=== PATIENT | male | born 1955 | race Caucasian/White ===

== ENCOUNTER → 2018-11-26 08:42 | Outpatient (CLI) | payer OTHER, SELFPAY ==
[2018-11-26 10:49] LABS: Alanine Aminotransferase 60 IU/L (21-72); Albumin 4.4 g/dL (3.5-5.0); Albumin Globulin Ratio 1.7 (1.0-2.8); Alkaline Phosphatase 65 U/L (38-126); Aspartate Aminotransferase 32 IU/L (17-59); Bilirubin Total 0.8 mg/dL (0.2-1.3); Blood Urea Nitrogen 18 mg/dL (9-20); Calcium 9.5 mg/dL (8.4-10.2); Carbon Dioxide 28 mmol/L (22-32); Chloride 102 mmol/L (98-107); Cholesterol 188 mg/dL (140-199); Estimated Glomerular Filt Rate > 60.0 mL/min (>60); Globulin 2.6 g/dL (1.7-4.1); Glucose 84 mg/dL (80-110); HDL Cholesterol 55 mg/dL (40-60); HEMOLYSIS < 15 (0-50); LDL Cholesterol Calculated 119 mg/dL (<100); Potassium 4.4 mmol/L (3.4-5.1); Sodium 139 mmol/L (137-145); Triglycerides 69 mg/dL (35-150)
== END ==
PROVIDERS: Visit Provider Family Medicine
DX: E78.00 Pure hypercholesterolemia, unspecified (principal)
CPT/HCPCS: 36415; 80053; 80061

== ENCOUNTER 2019-06-08 10:26 | Day surgery (SDC) | payer MEDICARE, SELFPAY ==
[2019-06-08] VITALS (7 sets, daily range): BP systolic 123–185; BP diastolic 74–92; PULSE 64–79; RESP 8–17; TEMP 36.4–36.9; O2SAT 92–98; BMI 31.6
[2019-06-08] MEDS: SODIUM CHLORIDE 0.9% 1,000 ML 200 ML IV (10:44)
--- NOTE | 2019-06-08 11:03 | PM.HP.1 ---
History of Present Illness History of Present Illness Date Patient Seen: 06/08/19 Time Patient Seen: 11:03 Chief complaint: [id number] Narrative: History of colon polyps Patient History Medical History (Updated 06/08/19 @ 10:54 by Ida Wilson RN) GERD (gastroesophageal reflux disease) (Acute) Hypertension (Acute) Family & Social History Social History: household members spouse Meds Home Medications and Allergies Home Medications Medication Instructions Recorded Confirmed Type atorvastatin 20 mg PO BEDTIME 06/08/19 06/08/19 History omeprazole 20 mg PO BID 06/08/19 06/08/19 History Exam Vital Signs (past 8 hours): - 06/08/19 10:55 Temperature 97.8 F Pulse Rate 73 Respiratory Rate 16 Blood Pressure 185/92 H Pulse Oximetry 98 Oxygen Delivery Method Room Air Narrative Exam Narrative: Oropharynx free of lesions Chest clear to auscultation percussion Cardiac exam reveals no S3 or murmur Assessment & Plan Assessment & Plan narrative: History of colon polyps. Need for follow-up colonoscopy. Risks, benefits, alternatives have been explained.
--- NOTE | 2019-06-08 11:04 | PM.OP.ENDO ---
Operative Date/Time/Diagnoses Date of procedure: 06/08/19 Time of procedure: 11:04 Pre-op diagnosis: See indication and findings Procedure & Clinicians Study performed: Colonoscopy Indications: History of colon polyps Surgeon: Lynsey Pitt Procedure Notes Procedure in detail: After informed consent was obtained the patient was placed in left lateral decubitus position. The video colonoscope was introduced the rectum slowly advanced to cecum. On slow withdrawal mucosa was carefully examined. The scope was removed. The patient tolerated procedure well. Preparation was good. Blood loss none Complications none Sedation Total sedation time 20 minutes Fentanyl 150 micro g Versed 8 mg IV titration Findings 1. Moderate sigmoid diverticulosis 2. Otherwise negative colonoscopy to cecum Patient will need follow-up colonoscopy in 5 years.
[2019-06-08] MEDS: MIDAZOLAM 5 MG/5 ML VIAL IV (11:31)
[2019-06-08] MEDS: fentaNYL 250 MCG/5 ML INJ IV (11:32)
== END 2019-06-08 12:12 | disposition home or self-care (01) ==
PROVIDERS: Family Provider Family Medicine; PCP Family Medicine; Visit Provider Internal Medicine Gastroenterology
PROC: 0DJD8ZZ Inspection of Lower Intestinal Tract, Via Natural or Artificial Opening Endoscopic (ICD-10-PCS; CPT 45378; principal; 2019-06-08 11:30)
DX: Z12.11 Encounter for screening for malignant neoplasm of colon (principal); Z86.010 Personal history of colon polyps; K57.30 Diverticulosis of large intestine without perforation or abscess without bleeding
CPT/HCPCS: G0105; J2250; J3010

== ENCOUNTER → 2020-01-03 08:39 | Outpatient (CLI) | payer MEDICARE, SELFPAY ==
[2020-01-03 09:47] LABS: Hemoglobin A1C% w Est Avg Glu 5.6 % (4.0-6.0)
[2020-01-03 09:49] LABS: Alanine Aminotransferase 50 IU/L (<50); Albumin 4.6 g/dL (3.5-5.0); Albumin Globulin Ratio 1.8 (1.0-2.8); Alkaline Phosphatase 67 U/L (38-126); Aspartate Aminotransferase 34 IU/L (17-59); BUN Creatinine Ratio 19.2 (6-22); Bilirubin Total 0.8 mg/dL (0.2-1.3); Blood Urea Nitrogen 19 mg/dL (9-20); Calcium 9.5 mg/dL (8.4-10.2); Carbon Dioxide 31 mmol/L (22-32); Chloride 104 mmol/L (98-107); Cholesterol 172 mg/dL (140-199); Estimated Glomerular Filt Rate > 60.0 mL/min (>60); Globulin 2.5 g/dL (1.7-4.1); Glucose 104 mg/dL (80-110); HDL Cholesterol 59 mg/dL (40-60); HEMOLYSIS < 15 (0-50); LDL Cholesterol Calculated 102 mg/dL (<100); Potassium 4.3 mmol/L (3.4-5.1); Sodium 140 mmol/L (137-145); Total Protein 7.1 g/dL (6.3-8.2); Triglycerides 56 mg/dL (35-150); VLDL Cholesterol Calculated 11 mg/dL (2-30)
== END ==
PROVIDERS: Family Provider Family Medicine; PCP Family Medicine; Referring Provider Family Medicine; Visit Provider Family Medicine
DX: I10 Essential (primary) hypertension (principal); E78.00 Pure hypercholesterolemia, unspecified
CPT/HCPCS: 36415; 80053; 80061; 83036

== ENCOUNTER → 2020-07-18 14:43 | Outpatient (CLI) | payer MEDICARE, SELFPAY ==
[2020-07-18] MEDS: COVID-19 VACC #1, MRNA(MOD) 100 MCG/0.5 ML VIAL IM (14:49)
== END ==
PROVIDERS: Family Provider Family Medicine; PCP Family Medicine; Visit Provider Internal Medicine
DX: Z23 Encounter for immunization (principal)
CPT/HCPCS: 0011A; 91301

== ENCOUNTER → 2020-08-15 14:25 | Outpatient (CLI) | payer MEDICARE, SELFPAY ==
[2020-08-15] MEDS: COVID-19 VACC #2, MRNA(MOD) 100 MCG/0.5 ML VIAL IM (14:32)
== END ==
PROVIDERS: Family Provider Family Medicine; PCP Family Medicine; Visit Provider Internal Medicine
DX: Z23 Encounter for immunization (principal)
CPT/HCPCS: 0012A; 91301

== ENCOUNTER → 2020-10-29 14:26 | Outpatient (CLI) | payer MEDICARE, SELFPAY ==
[2020-10-29 16:58] LABS: COVID19 -Nasal RAPID Negative (Negative)
== END ==
PROVIDERS: Family Provider Family Medicine; PCP Family Medicine; Visit Provider Student in an Organized Health Care Education/Training Program
DX: Z20.822 Contact with and (suspected) exposure to COVID-19 (principal)
CPT/HCPCS: 87635; C9803

== ENCOUNTER 2020-10-31 10:24 | Day surgery (SDC) | payer MEDICARE, SELFPAY ==
[2020-10-31] VITALS (9 sets, daily range): BP systolic 129–166; BP diastolic 76–82; PULSE 61–91; RESP 12–18; TEMP 36.2–36.9; O2SAT 94–100; BMI 31.6
--- NOTE | 2020-10-31 | PATH_ITS ---
[facility] Accession Number: [id number] . 01 Material submitted: . PART A: gastrointestinal site - GASTRIC BODY POLYP PART B: esophagus - WOODSON'S BIOPSY . 02 Diagnosis: A. Stomach, Body Polyp, Biopsy: Fundic gland polyps. No evidence of Helicobacter on H/E stain. Negative for intestinal metaplasia. Negative for dysplasia and malignancy. . B. Esophagus, Biopsy: Squamocolumnar junctional mucosa with no diagnostic abnormality. Negative for intestinal metaplasia by alcian blue stain. Negative for dysplasia and malignancy. [facility] 11/06/2020 1638 Local . 02 Electronically signed: . Yudelka Echeverria MD, Pathologist NPI- [id number] . 01 Gross description: . Part A: GASTRIC BODY POLYP: Received in formalin are 3 fragment(s) of ramírez, soft tissue measuring 0.5 x 0.4 x 0.4 cm to 1.2 x 1.0 x 0.9 cm which is serially sectioned and submitted entirely in 2 cassette(s) Part B: WOODSON'S BIOPSY: Received in formalin are 3 fragment(s) of ramírez, soft tissue measuring 0.1 x 0.1 x 0.1 cm to 0.2 x 0.2 x 0.1 cm submitted entirely in 1 cassette(s) /[facility] 11/01/2020 2015 Local . 02 Microscopic: . B. An alcian blue stain was performed to evaluate for intestinal metaplasia and is negative. The control stain showed appropriate reactivity. . * This test was developed and its performance characteristics determined by [employer]. It has not been cleared or approved by the U.S. Food and Drug Administration. The FDA has determined that such clearance or approval is not necessary. This test is used for clinical purposes. It should not be regarded as investigational or for research. . 02 Pathologist provided ICD-10: K21.9 . 02 CPT . 068684, 685707, 376099 Performed at: [facility] [address] [id number] MD Abdullahi Gavin MD Phone: [phone] Performed at: [id number] [place], [place] [id number] MD Yudelka Echeverria MD Phone: [phone]
--- NOTE | 2020-10-31 08:00 | P.HP_ITS ---
History of Present Illness History of Present Illness Date Patient Seen: 10/31/20 Chief complaint: SDC Narrative: 65-year-old male with a history of GERD here for further evaluation and screening for Quinteros's esophagus Patient History Medical History (Updated 06/08/19 @ 10:54 by Ida Wilson RN) GERD (gastroesophageal reflux disease) Hypertension Family & Social History Social History: household members spouse Meds Home Medications and Allergies Home Medications Medication Instructions Recorded Confirmed Type atorvastatin 20 mg PO BEDTIME 06/08/19 10/31/20 History omeprazole 20 mg PO BID 06/08/19 10/31/20 History Allergies Allergy/AdvReac Type Severity Reaction Status Date / Time No Known Drug Allergies Allergy Verified 10/31/20 10:39 Exam Narrative Exam Narrative: General: Patient is obese, not in apparent distress Cardiovascular: Regular rate and rhythm, no murmurs, rubs, or gallops; no evidence of edema; no palpable abdominal aortic aneurysm Gastrointestinal: Normoactive bowel sounds, soft, nontender, nondistended, no rebound tenderness, no hepatosplenomegaly, no evidence of hernia Assessment & Plan Assessment & Plan narrative: 65-year-old male with a history of GERD here for further evaluation by means of endoscopy for Quinteros's esophagus screening Regarding the procedure(s), the risks and potential complications, benefits, and alternatives (including not doing the procedure) were discussed with the patient. The risks include but are not limited to bleeding, splenic injury, in fection, perforation which may require surgical intervention, missed lesions, and adverse reactions to sedative medicines. After a question and answer period, the patient agreed to proceed with the procedure(s) and gives informed consent.
[2020-10-31] MEDS: SODIUM CHLORIDE 0.9% 1,000 ML 70 ML IV (10:48)
--- NOTE | 2020-10-31 11:01 | PM.OP.ENDO ---
Operative Date/Time/Diagnoses Date of procedure: 10/31/20 Procedure Notes Procedure in detail: Surgeon: Jasen Benítez MD Procedure: Esophagogastroduodenoscopy with biopsies; primary EGD (done without office consultation) Preoperative diagnosis: Quinteros's esophagus surveillance, GERD Postoperative diagnosis: Short-segment Quinteros's esophagus status post biopsy; gastric polyp status post snare polypectomy; small hiatal hernia; mild distal esophageal stricture Medications: 2cc Viscous lidocaine 4%, Conscious sedation using 7 mg IV of Midazolam and 100 mcg IV of Fentanyl Preanesthesia Assessment An H and P was performed/updated and the Px?s ASA class is 2. The procedure was discussed in detail with the patient. The potential risks and complications including infection, bleeding, missed lesions, perforation, need for surgery in case of perforation, prolonged hospital stay, and were explained. A brief question and answer period was allotted and once all questions were answered, informed consent was obtained. The patient was brought back to the procedure room and placed on standard monitoring. The patient?s vital signs were monitored continuously throughout the entire procedure. Prior to starting, a timeout was performed to confirm the patient?s identity, allergies, medications, and procedure. Procedure in detail The patient was placed in left lateral decubitus position and a bite block was inserted. The tip of the upper endoscope was placed into the mouth and advanced without difficulty under direct visualization into the esophagus. Esophagus: At 38 cm from the incisors there was evidence of a mild stenosis possibly from reflux esophagitis. This area was passed without difficulty. Given the patient's absence of dysphagia symptoms no dilation was performed; There was evidence of prior Quinteros's esophagus C1 M1, biopsies taken to rule out dysplasia with minimal bleeding Stomach: There were multiple sessile and pedunculated polyps in the stomach. A few of the pedunculated polyps appeared very erythematous and so the decision was made to remove them. Three polyps were removed via hot snare polypectomy the largest being 1 cm. Resection and retrieval were complete with no bleeding Retroflexion in the stomach revealed a small hiatal hernia Duodenum: The duodenal mucosa was normal up to the 2nd portion of the duodenum The patient tolerated the procedure well and will be brought back to the recovery area to be discharged once criteria are met. The total physician intraservice time was 15 minutes. Complications There were no complications and estimated blood loss was minimal. Recommendations: Resume previous diet Continue Anti-reflux measures Continue outPx medications Follow up pathology results Repeat EGD in 3 years. This may change depending on pathology results Contact our office if you have any dysphagia (trouble swallowing); in that situation you may require a dilation of your distal esophagus An emergency contact number was given to the patient for any complications related to the procedure
[2020-10-31] MEDS: LIDOCAINE 4% SOLN 50 ML 20 ML TOP (11:10)
[2020-10-31] MEDS: fentaNYL 250 MCG/5 ML INJ IV (11:10)
[2020-10-31] MEDS: MIDAZOLAM 5 MG/5 ML VIAL IV (11:15)
== END 2020-10-31 12:59 | disposition home or self-care (01) ==
PROVIDERS: Family Provider Family Medicine; PCP Family Medicine; Referring Provider Internal Medicine Gastroenterology; Visit Provider Internal Medicine Gastroenterology
PROC: 0DJ08ZZ Inspection of Upper Intestinal Tract, Via Natural or Artificial Opening Endoscopic (ICD-10-PCS; CPT 43235; principal; 2020-10-31 11:30)
DX: K22.70 Barrett's esophagus without dysplasia (principal); K21.9 Gastro-esophageal reflux disease without esophagitis; I10 Essential (primary) hypertension; K22.2 Esophageal obstruction; K44.9 Diaphragmatic hernia without obstruction or gangrene; K31.7 Polyp of stomach and duodenum
CPT/HCPCS: 43251; 43239; J2250; J3010

== ENCOUNTER → 2021-01-17 09:37 | Outpatient (CLI) | payer MEDICARE, SELFPAY ==
[2021-01-17 10:42] LABS: Alanine Aminotransferase 119 IU/L (<50); Albumin 4.3 g/dL (3.5-5.0); Albumin Globulin Ratio 1.3 (1.0-2.8); Alkaline Phosphatase 68 U/L (38-126); Aspartate Aminotransferase 62 IU/L (17-59); BUN Creatinine Ratio 18.1 (6-22); Bilirubin Total 0.7 mg/dL (0.2-1.3); Blood Urea Nitrogen 17 mg/dL (9-20); Calcium 9.6 mg/dL (8.4-10.2); Carbon Dioxide 27 mmol/L (22-32); Chloride 106 mmol/L (98-107); Cholesterol 181 mg/dL (140-199); Estimated Glomerular Filt Rate > 60.0 mL/min (>60); Globulin 3.3 g/dL (1.7-4.1); Glucose 106 mg/dL (80-110); HDL Cholesterol 51 mg/dL (40-60); HEMOLYSIS < 15 (0-50); LDL Cholesterol Calculated 118 mg/dL (<100); Potassium 4.5 mmol/L (3.4-5.1); Sodium 141 mmol/L (137-145); Total Protein 7.6 g/dL (6.3-8.2); Triglycerides 62 mg/dL (35-150)
[2021-01-17 11:06] LABS: Prostate Specific Antigen 3.63 ng/mL (0.10-4.00)
[2021-01-17 12:31] LABS: LDL Cholesterol Direct 111 mg/dL (<100)
== END ==
PROVIDERS: Family Provider Family Medicine; PCP Family Medicine; Referring Provider Family Medicine; Visit Provider Family Medicine
DX: E78.00 Pure hypercholesterolemia, unspecified (principal)
CPT/HCPCS: 36415; 80053; 80061; 83721; 84153

== ENCOUNTER → 2021-02-20 11:00 | Outpatient (CLI) | payer MEDICARE, SELFPAY ==
[2021-02-20 13:20] LABS: Alanine Aminotransferase 65 IU/L (<50); Albumin Globulin Ratio 1.7 (1.0-2.8); Alkaline Phosphatase 72 U/L (38-126); Aspartate Aminotransferase 40 IU/L (17-59); BUN Creatinine Ratio 16.2 (6-22); Bilirubin Total 0.7 mg/dL (0.2-1.3); Blood Urea Nitrogen 16 mg/dL (9-20); Carbon Dioxide 26 mmol/L (22-32); Chloride 105 mmol/L (98-107); Estimated Glomerular Filt Rate > 60.0 mL/min (>60); Glucose 103 mg/dL (80-110); HEMOLYSIS < 15 (0-50); Potassium 4.4 mmol/L (3.4-5.1); Sodium 141 mmol/L (137-145)
== END ==
PROVIDERS: Family Provider Family Medicine; PCP Family Medicine; Referring Provider Family Medicine; Visit Provider Family Medicine
DX: R74.8 Abnormal levels of other serum enzymes (principal)
CPT/HCPCS: 36415; 80053

== ENCOUNTER → 2022-04-18 09:50 | Outpatient (CLI) | payer MEDICARE, SELFPAY ==
[2022-04-18 13:04] LABS: Alanine Aminotransferase 73 IU/L (<50); Albumin 4.8 g/dL (3.5-5.0); Albumin Globulin Ratio 1.5 (1.0-2.8); Alkaline Phosphatase 70 U/L (38-126); Aspartate Aminotransferase 39 IU/L (17-59); BUN Creatinine Ratio 16.2 (6-22); Bilirubin Total 0.8 mg/dL (0.2-1.3); Blood Urea Nitrogen 16 mg/dL (9-20); Calcium 9.5 mg/dL (8.4-10.2); Carbon Dioxide 28 mmol/L (22-32); Chloride 102 mmol/L (98-107); Cholesterol 173 mg/dL (140-199); Estimated Glomerular Filt Rate > 60 mL/min (>60); Globulin 3.3 g/dL (1.7-4.1); Glucose 96 mg/dL (80-110); HDL Cholesterol 48 mg/dL (40-60); HEMOLYSIS < 15 (0-50); LDL Cholesterol Calculated 114 mg/dL (<100); Potassium 4.4 mmol/L (3.4-5.1); Sodium 141 mmol/L (137-145); Total Protein 8.1 g/dL (6.3-8.2); Triglycerides 54 mg/dL (35-150)
== END ==
PROVIDERS: Internal Medicine; Family Provider Family Medicine; PCP Family Medicine; Referring Provider Family Medicine; Visit Provider Family Medicine
DX: E78.00 Pure hypercholesterolemia, unspecified (principal)
CPT/HCPCS: 36415; 80053; 80061

== ENCOUNTER → 2023-08-28 08:56 | Outpatient (CLI) | payer MEDICARE, SELFPAY ==
[2023-08-28 09:53] LABS: Hematocrit 42.9 % (41-53); Hemoglobin 14.9 g/dL (13.5-17.5); Mean Corpuscular HGB Conc 34.7 % (30-36); Mean Corpuscular Hemoglobin 32.4 PG (26-34); Mean Corpuscular Volume 93.5 fL (80-100); Platelet Count 226 X10^3/uL (150-400); Red Blood Cell Count 4.59 X10^6/uL (4.5-5.9); Red Cell Distribution Width 13.2 % (11.6-14.8); White Blood Cell Count 4.3 X10^3/uL (4.5-11.0)
[2023-08-28 10:09] LABS: Alanine Aminotransferase 66 IU/L (<50); Albumin 4.3 g/dL (3.5-5.0); Albumin Globulin Ratio 1.5 (1.0-2.8); Alkaline Phosphatase 61 U/L (38-126); Aspartate Aminotransferase 37 IU/L (17-59); BUN Creatinine Ratio 18.6 (6-22); Bilirubin Total 0.9 mg/dL (0.2-1.3); Blood Urea Nitrogen 18 mg/dL (9-20); Calcium 9.3 mg/dL (8.4-10.2); Carbon Dioxide 30 mmol/L (22-32); Chloride 106 mmol/L (98-107); Cholesterol 174 mg/dL (140-199); Estimated Glomerular Filt Rate > 60 mL/min (>60); Globulin 2.9 g/dL (1.7-4.1); Glucose 109 mg/dL (80-110); HDL Cholesterol 61 mg/dL (40-60); HEMOLYSIS < 15 (0-50); LDL Cholesterol Calculated 101 mg/dL (<100); Potassium 4.4 mmol/L (3.4-5.1); Sodium 141 mmol/L (137-145); Total Protein 7.2 g/dL (6.3-8.2); Triglycerides 62 mg/dL (35-150)
== END ==
PROVIDERS: Family Provider Family Medicine; PCP Family Medicine; Referring Provider Family Medicine; Visit Provider Family Medicine
DX: E78.5 Hyperlipidemia, unspecified (principal); Z12.5 Encounter for screening for malignant neoplasm of prostate; E78.00 Pure hypercholesterolemia, unspecified
CPT/HCPCS: 36415; 80053; 80061; 85027; G0103

== ENCOUNTER → 2023-10-28 13:02 | Outpatient (CLI) | payer MEDICARE, SELFPAY ==
--- NOTE | 2023-10-28 13:04 | DI.US.S_ITS ---
PROCEDURE: US ABD AORTA ANEURYSM SCREEN INDICATIONS: Encounter for screening for cardiovascular disorde TECHNIQUE: Real time scanning was performed of the aorta and iliac arteries, with image documentation. COMPARISON: None. FINDINGS: Aorta: Proximal aortic diameter measures 1.9 x 1.9 cm. Mid-aorta measures 2.2 x 2.2 cm. Distal aortic diameter is 1.8 x 1.8 cm. Iliac arteries: Right common iliac artery measures 1.2 x 1.1 cm. Left common iliac artery measures 1 x 1.1 cm. IMPRESSION: Negative for aneurysm. Dictated by: Ludwig Broussard M.D. on 10/28/2023 at 13:10 Approved by: Ludwig Broussard M.D. on 10/28/2023 at 13:10
== END ==
LOC: US 13:03
PROVIDERS: Family Provider Family Medicine; PCP Family Medicine; Referring Provider Family Medicine; Visit Provider Family Medicine
DX: Z13.6 Encounter for screening for cardiovascular disorders (principal)
CPT/HCPCS: 76706

== ENCOUNTER 2024-01-20 11:51 | Day surgery (SDC) | payer MEDICARE, SELFPAY ==
--- NOTE | 2024-01-20 | PATH_ITS ---
[facility] Accession Number: [id number] No. of containers..02 Tissue . 01 Material submitted: . PART A: gastrointestinal site - GASTRIC POLYPS PART B: esophagus, E-G Junction - GE JUNCTION . 01 Clinical history: . A: R/O HYPERPLASTIC B: R/O WOODSON'S . 01 Diagnosis: A. GASTRIC POLYPS, BIOPSIES: Fundic gland polyps. No evidence of Helicobacter organisms on H/E stain. Negative for intestinal metaplasia. Negative for dysplasia and malignancy. . B. GASTROESOPHGEAL JUNCTION, BIOPSY: Squamocolumnar junctional mucosa with mild reactive features of reflux esophagitis. Negative for specialized intestinal metaplasia on alcian blue stain. Negative for dysplasia or malignancy. [facility] 01/25/2024 1320 Local . 01 Electronically signed: . Henry Robles MD, PhD, Pathologist NPI- [id number] . 01 Gross description: . Part A: GASTRIC POLYPS: Received in formalin are 2 fragment(s) of ramírez, soft tissue measuring 0.1 x 0.1 x 0.1 cm to 0.2 x 0.2 x 0.2 cm submitted entirely in 1 cassette(s) Part B: GE JUNCTION: Received in formalin are 3 fragment(s) of ramírez, soft tissue measuring 0.1 x 0.1 x 0.1 cm to 0.2 x 0.2 x 0.1 cm submitted entirely in 1 cassette(s) /[facility] 01/21/2024 0111 Local . 01 Microscopic: . B. An AB/PAS stain is negative for goblet cells. A control stain shows appropriate reactivity. . 01 Pathologist provided ICD-10: K31.7, K21.9 . 01 CPT . 036202, 2168409, 705055 Specimen Comment: A courtesy copy of this report has been sent to [phone] Performed at: [address] [address], [place], [place] [id number] MD Abdullahi Gavin MD Phone: [phone]
[2024-01-20 12:15] VITALS: BP 171/89; PULSE 71; RESP 16; TEMP 36.6; O2SAT 98
[2024-01-20] MEDS: LACTATED RINGERS 1,000 ML 42 ML IV (12:28)
--- NOTE | 2024-01-20 12:43 | P.HP_ITS ---
History of Present Illness History of Present Illness Chief complaint: [facility] Narrative: History of reflux and Quinteros's esophagus [facility] Medical History (Updated 01/20/24 @ 12:12 by Nehal Olmedo RN) Hyperlipidemia GERD (gastroesophageal reflux disease) Hypertension Surgical History (Updated 01/20/24 @ 12:13 by Nehal Olmedo, PHUONG) History of tonsillectomy History of ankle surgery Social History household members: spouse Smoking Status: Former smoker alcohol intake: current Meds Home Medications and Allergies Home Medications Medication Instructions Recorded Confirmed Type atorvastatin 20 mg tablet 20 mg PO BEDTIME 06/08/19 01/20/24 History omeprazole 20 mg capsule,delayed 20 mg PO BID 06/08/19 01/20/24 History release Allergies Allergy/AdvReac Type Severity Reaction Status Date / Time No Known Drug Allergies Allergy Verified 01/20/24 12:13 Exam Vital Signs (past 8 hours): - 01/20/24 12:15 Temperature 97.8 F Pulse Rate 71 Respiratory Rate 16 Blood Pressure 171/89 H Pulse Oximetry 98 Oxygen Delivery Method Room Air Oxygen Delivery Method Room Air Narrative Exam Narrative: Oropharynx free of lesions Chest clear to auscultation percussion Cardiac exam reveals no S3 or murmur Assessment & Plan Assessment & Plan narrative: History of Barretts esophagus and GE reflux. Need for repeat upper endoscopy. Risks, benefits, alternatives have been explained. Time-Based Coding :: [TOTAL MINUTES] spent with patient and on the chart (including review of chart, obtaining history, exam, reviewing outside data, placing orders, documenting exam and treatment plan, and counseling patient) on [DATE].
--- NOTE | 2024-01-20 12:44 | PM.OP.EGD ---
Operative Date/Time/Diagnoses Date of procedure: 01/20/24 Pre-op diagnosis: See indication and findings Procedure & Clinicians Study performed: EGD Indications: Quinteros's esophagus and GE reflux Surgeon: Lynsey Pitt Procedure Notes Procedure in detail: After informed consent was obtained the patient was placed in left lateral decubitus position. The video upper scope was placed into the oropharynx and with the patient's help swallowed into the esophagus. The esophagus stomach and duodenum were carefully examined. On withdrawal, retroflexed view the GE junction was performed. The scope was removed. The patient tolerated procedure well. Blood loss none Complications none Sedation mac Findings 1. At the GE junction 1 small tongue of tissue was noted. Maximum size C1M1, which was biopsied x2. This was at approximately 38-39 cm. Retroflexed view was normal 2. 3-4 cm sliding hiatal hernia 3. Multiple gastric polyps previously only fundic gland on biopsy. Largest was biopsied x2 to ensure not hyperplastic 4. Normal distal stomach 5. Normal duodenal bulb and sweep Based on the polyp and Quinteros's biopsies appropriate follow-up will be suggested.
[2024-01-20 13:05] VITALS: BP 139/79; PULSE 63; RESP 15; TEMP 36.4; O2SAT 97
[2024-01-20 13:10] VITALS: BP 146/95; PULSE 67; RESP 15; O2SAT 98
[2024-01-20 13:15] VITALS: BP 154/90; PULSE 68; RESP 14; O2SAT 97
[2024-01-20 13:22] VITALS: BP 134/89; PULSE 74; RESP 16; O2SAT 96
== END 2024-01-20 13:30 | disposition home or self-care (01) ==
PROVIDERS: Family Provider Family Medicine; PCP Family Medicine; Referring Provider Internal Medicine Gastroenterology; Visit Provider Internal Medicine Gastroenterology
PROC: 0DJ08ZZ Inspection of Upper Intestinal Tract, Via Natural or Artificial Opening Endoscopic (ICD-10-PCS; CPT 43239; principal; 2024-01-20 13:00)
DX: K21.9 Gastro-esophageal reflux disease without esophagitis (principal); K22.70 Barrett's esophagus without dysplasia; K31.7 Polyp of stomach and duodenum; K44.9 Diaphragmatic hernia without obstruction or gangrene
CPT/HCPCS: 43239; J2704

== ENCOUNTER 2024-09-12 09:18 | Day surgery (SDC) | payer MEDICARE, SELFPAY ==
[2024-09-12] MEDS: LACTATED RINGERS 1,000 ML 42 ML IV (09:44)
[2024-09-12 09:54] VITALS: BP 186/103; PULSE 90; RESP 17; TEMP 36.4; O2SAT 97
--- NOTE | 2024-09-12 09:56 | P.HP_ITS ---
History of Present Illness History of Present Illness Date Patient Seen: 09/12/24 Chief complaint: SDC Narrative: Follow-up colonoscopy with last 3 years ago. Multiple polyps found [facility] Medical History (Updated 01/20/24 @ 12:12 by Nehal Olmedo, RN) Hyperlipidemia GERD (gastroesophageal reflux disease) Hypertension Surgical History (Updated 01/20/24 @ 12:13 by Nehal Olmedo, RN) History of tonsillectomy History of ankle surgery Social History household members: spouse Smoking Status: Former smoker alcohol intake: current Meds Home Medications and Allergies Home Medications Medication Instructions Recorded Confirmed Type atorvastatin 20 mg tablet 20 mg PO BEDTIME 06/08/19 09/12/24 History omeprazole 20 mg capsule,delayed 20 mg PO BID 06/08/19 09/12/24 History release Allergies Allergy/AdvReac Type Severity Reaction Status Date / Time No Known Drug Allergies Allergy Verified 01/20/24 12:13 Exam Vital Signs (past 8 hours): - 09/12/24 09:54 Temperature 97.5 F L Pulse Rate 90 Respiratory Rate 17 Blood Pressure 186/103 H Pulse Oximetry 97 Oxygen Delivery Method Room Air Oxygen Delivery Method Room Air Narrative Exam Narrative: Oropharynx free of lesions Chest clear to auscultation percussion Cardiac exam reveals no S3 or murmur Assessment & Plan Assessment & Plan narrative: History of polyps need for follow-up colonoscopy at 3 year interval as previously dictated. Risks, benefits, alternatives have been explained. Time-Based Coding :: [TOTAL MINUTES] spent with patient and on the chart (including review of chart, obtaining history, exam, reviewing outside data, placing orders, documenting exam and treatment plan, and counseling patient) on [DATE]. [employer] Document charge(s): No
--- NOTE | 2024-09-12 09:57 | PM.OP.COLON ---
Operative Date/Time/Diagnoses Date of procedure: 09/12/24 Pre-op diagnosis: See indication and findings Procedure & Clinicians Study performed: Colonoscopy Same procedure as scheduled: Yes Indications: History of colon polyps last colonoscopy 3 years ago Surgeon: Lynsey Pitt Procedure Notes Procedure in detail: After informed consent was obtained the patient was placed in left lateral decubitus position. The video colonoscope was introduced the rectum slowly advanced cecum. Preparation was good. On slow withdrawal mucosa was carefully examined. The scope was removed. The patient tolerated procedure well. Blood loss none Complications none Sedation mac Findings 1. Normal colonoscopy to cecum Patient should have follow-up colonoscopy in 5 years
[2024-09-12 10:17] VITALS: BP 134/90; PULSE 82; RESP 13; TEMP 36.6; O2SAT 94
[2024-09-12 10:24] VITALS: BP 133/84; PULSE 87; RESP 22; O2SAT 96
[2024-09-12 10:29] VITALS: BP 146/88; PULSE 86; RESP 17; TEMP 36.9; O2SAT 96
[2024-09-12 10:31] VITALS: BP 157/85; PULSE 86; RESP 16; O2SAT 96
== END 2024-09-12 10:45 | disposition home or self-care (01) ==
PROVIDERS: Family Provider Family Medicine; PCP Family Medicine; Referring Provider Internal Medicine Gastroenterology; Visit Provider Internal Medicine Gastroenterology
PROC: 0DJD8ZZ Inspection of Lower Intestinal Tract, Via Natural or Artificial Opening Endoscopic (ICD-10-PCS; CPT 45378; principal; 2024-09-12 10:30)
DX: Z12.11 Encounter for screening for malignant neoplasm of colon (principal)
CPT/HCPCS: G0105; J2704

== ENCOUNTER → 2024-11-04 09:13 | Outpatient (CLI) | payer MEDICARE, SELFPAY ==
[2024-11-04 10:21] LABS: Hemoglobin A1C% w Est Avg Glu 5.4 % (4.0-6.0)
[2024-11-04 10:24] LABS: Add Manual Diff / Slide Review NO; Basophils Absolute Auto 0 /uL (0-100); Basophils Percent Auto 0.8 % (0-2); Eosinophils Absolute Auto 400 /uL (0-450); Eosinophils Percent Auto 9.4 % (2-4); Hematocrit 42.5 % (41-53); Hemoglobin 14.8 g/dL (13.5-17.5); Lymphocytes Absolute Auto 1100 /uL (1100-4500); Lymphocytes Percent Auto 27.5 % (25-40); Mean Corpuscular HGB Conc 34.9 % (30-36); Mean Corpuscular Hemoglobin 32.6 PG (26-34); Mean Corpuscular Volume 93.4 fL (80-100); Monocytes Absolute Auto 400 /uL (0-900); Monocytes Percent Auto 9.1 % (3-14); Neutrophils Absolute Auto 2100 /uL (1500-7000); Neutrophils Percent Auto 53.2 % (50-75); Platelet Count 204 X10^3/uL (150-400); Red Blood Cell Count 4.54 X10^6/uL (4.5-5.9); Red Cell Distribution Width 12.9 % (11.6-14.8)
[2024-11-04 10:29] LABS: Alanine Aminotransferase 59 IU/L (<50); Albumin 4.5 g/dL (3.5-5.0); Albumin Globulin Ratio 1.9 (1.0-2.8); Alkaline Phosphatase 54 U/L (38-126); Aspartate Aminotransferase 43 IU/L (17-59); BUN Creatinine Ratio 17.3 (6-22); Bilirubin Total 0.8 mg/dL (0.2-1.3); Blood Urea Nitrogen 17 mg/dL (9-20); Calcium 9.6 mg/dL (8.4-10.2); Carbon Dioxide 28 mmol/L (22-32); Chloride 104 mmol/L (98-107); Cholesterol 160 mg/dL (140-199); Estimated Glomerular Filt Rate > 60 mL/min (>60); Globulin 2.4 g/dL (1.7-4.1); Glucose 116 mg/dL (70-99); HDL Cholesterol 61 mg/dL (40-60); HEMOLYSIS < 15 (0-50); LDL Cholesterol Calculated 89 mg/dL (<100); Potassium 4.5 mmol/L (3.4-5.1); Sodium 138 mmol/L (137-145); Total Protein 6.9 g/dL (6.3-8.2); Triglycerides 49 mg/dL (35-150)
== END ==
LOC: LAB 09:16
PROVIDERS: Family Provider Family Medicine; PCP Family Medicine
DX: I10 Essential (primary) hypertension (principal); E78.00 Pure hypercholesterolemia, unspecified; Z13.228 Encounter for screening for other metabolic disorders
CPT/HCPCS: 36415; 80053; 80061; 83036; 85025

== ENCOUNTER → 2025-01-02 11:35 | Outpatient (CLI) | payer MEDICARE, SELFPAY ==
[2025-01-02 13:12] LABS: Prostate Specific Antigen 5.96 ng/mL (0.10-4.00)
== END ==
PROVIDERS: Family Provider Family Medicine; PCP Family Medicine
DX: Z12.5 Encounter for screening for malignant neoplasm of prostate (principal)
CPT/HCPCS: 36415; 84153

== ENCOUNTER → 2025-03-16 13:44 | Outpatient (CLI) | payer MEDICARE, SELFPAY ==
[2025-03-16 15:43] LABS: Prostate Specific Antigen 5.07 ng/mL (0.10-4.00)
== END ==
LOC: LAB 13:46
PROVIDERS: Family Provider Family Medicine; PCP Family Medicine
DX: R97.20 Elevated prostate specific antigen [PSA] (principal)
CPT/HCPCS: 36415; 84153